=== PATIENT | male | born 1985 | race African-American/Black ===

== ENCOUNTER 2017-01-01 19:36 | Emergency (ER) | payer OTHER ==
[~2017-01-01] VITALS: Ht 182.9 cm; Wt 136.1 kg
[~2017-01-01 19:36] MED LIST: PRED20TA PO
[2017-01-01 20:46] VITALS: BP 151/93
[2017-01-01 21:56] LABS: OBC FLU VALID
[2017-01-01] MEDS ORDERED: AZIT250T PO (22:26)
[2017-01-01] MEDS ORDERED: PRED20TA PO (22:26)
[2017-01-01] MEDS ORDERED: BENZ200C39 PO (22:26)
--- NOTE | 2017-01-01 22:26 | PHYS DOC ---
Past Medical History Past Medical History: Asthma, Diabetes-Type II Past Surgical History: No Surgical History Additional Information: Non smoker Alcohol Use: Occasionally Drug Use: Marijuana Adult General Chief Complaint Chief Complaint: COUGH HPI HPI Patient is a 31 year old male who presents with productive cough and shortness of breath started 2 days ago. He also has nasal congestion. He denies fever, sore throat, ear pain, or vomiting. He has a history of asthma and has been using his nebulizer at home. He had his last breathing treatment at 1930. His PCP is Franca London. Review of Systems Review of Systems Constitutional: Denies fever or chills. [] Eyes: Denies change in visual acuity, redness, or eye pain. [] HENT: Denies ear pain or sore throat. Reports nasal congestion. Respiratory: Reports productive cough and shortness of breath. Cardiovascular: Denies chest pain, palpitations or edema. [] GI: Denies abdominal pain, nausea, vomiting. [] Integument: Denies rash or skin lesions. [] Neurologic: Denies headache, focal weakness or sensory changes. [] All systems reviewed and negative unless otherwise stated in the HPI. Allergies Allergies Allergies Coded Allergies Type Severity Reaction Last Updated Verified No Known Drug Allergies 11/16/14 No Physical Exam Physical Exam Constitutional: Well developed, well nourished, no acute distress, non-toxic appearance. [] HENT: Normocephalic, atraumatic, bilateral external ears normal, oropharynx moist, no oral exudates, nose normal. Bilateral TMs without erythema or bulging. There is no posterior pharyngeal erythema or tonsillar edema. Bilateral nasal turbinates are swollen and erythematous with purulent drainage. Eyes: PERRLA, EOMI, conjunctiva normal, no discharge. [] Neck: Normal range of motion, no tenderness, supple, no stridor. [] Cardiovascular: Heart rate regular rhythm, no murmur [] Lungs & Thorax: Bilateral breath sounds clear to auscultation without wheezes, rales, or rhonchi. Skin: Warm, dry, no erythema, no rash. [] Neurologic: Alert and oriented X 3, normal motor function, normal sensory function, no focal deficits noted. [] Psychologic: Affect normal, judgement normal, mood normal. [] Current Patient Data Vital Signs Vital Signs Date Time Temp Pulse Resp B/P Pulse Ox O2 Delivery O2 Flow Rate FiO2 01/01/17 20:46 98.4 81 18 99 Room Air 98.4 Lab Values Laboratory Tests Test 01/01/17 21:00 Influenza Type A Antigen Negative (NEGATIVE) Influenza Type B Antigen Negative (NEGATIVE) EKG EKG [] Radiology/Procedures Radiology/Procedures PA and lateral chest x-ray reviewed and interpreted by myself with Dr. Pina. There is a mild right lower lobe infiltrate. Course & Med Decision Making Course & Med Decision Making Pertinent Labs and Imaging studies reviewed. (See chart for details) [] Dragon Disclaimer Dragon Disclaimer This electronic medical record was generated, in whole or in part, using a voice recognition dictation system. Departure Departure Impression: Primary Impression: Pneumonia Disposition: HOME, SELF-CARE Condition: STABLE Referrals: NO PCP (PCP) Patient Instructions: Pneumonia, Adult, [id number] Additional Instructions: Your chest x-ray shows a mild pneumonia. Please complete all the prescribed antibiotics and steroids, even if you are feeling better. Please follow-up with your primary care doctor within the next week. Return to emergency department if you've increased difficulty breathing, fevers , or other new or concerning symptoms. Scripts Benzonatate 200 Mg Capsule1 Cap PO TID #30 CAP Prov:SABRINA GARCIA 01/01/17 Prednisone 20 Mg Paesfs34 Mg PO DAILY 5 Days Prov:SABRINA GARCIA 01/01/17 Azithromycin (Zithromax)250 Mg Tablet1 Pkg PO UD #6 TAB Prov:SABRINA GARCIA 01/01/17 Problem Qualifiers Primary Impression: Pneumonia Pneumonia type: due to unspecified organism Laterality: right Lung location : lower lobe of lung Qualified Code: J18.1 - Lobar pneumonia, unspecified organism SABRINA GARCIA Jan 01, 2017 22:26
--- NOTE | 2017-01-02 08:52 | RAD ---
Chest, 2 views, 01/01/2017: History: Cough The heart size and pulmonary vascularity are normal. No pulmonary infiltrate is seen. There is no evidence of pleural fluid. IMPRESSION: No acute cardiopulmonary abnormality is detected.
== END 2017-01-01 22:35 | disposition home or self-care (01) ==
LOC: ER 19:36
DX: J18.1 Lobar pneumonia, unspecified organism (principal); E11.9 Type 2 diabetes mellitus without complications; J45.909 Unspecified asthma, uncomplicated; F12.10 Cannabis abuse, uncomplicated
CPT/HCPCS: 71020; 87804; 99285-25

== ENCOUNTER 2019-09-18 15:49 | Emergency (ER) | payer OTHER ==
[~2019-09-18] VITALS: Ht 172.7 cm; Wt 136.1 kg
[~2019-09-18 15:49] MED LIST changes: +AZIT250T PO; +BENZ200C47 PO
[2019-09-18 16:11] VITALS: BP 168/110
--- NOTE | 2019-09-18 16:12 | PHYS DOC ---
Past Medical History Past Medical History: Asthma, Diabetes-Type II Past Surgical History: No Surgical History Alcohol Use: Occasionally Drug Use: Marijuana Adult General Chief Complaint Chief Complaint: HAND PROBLEM HPI HPI Patient is a 33 year old male who presents with stepping up onto the porch and missed and he fell to the left side catching himself with the left hand and landing on the hand. Patient fell onto the concrete. This happened at [address]. Patient rates his pain a 7 out of 10 and he has tenderness to the dorsal hand at the fourth and fifth finger. Review of Systems Review of Systems Musculoskeletal: Denies back pain. Left hand joint pain [] All other systems were reviewed and found to be within normal limits, except as documented in this note. Current Medications Current Medications Current Medications Medications (Trade) Dose Ordered Sig/Eliot Start Time Stop Time Status Last Admin Dose Admin Ibuprofen (Motrin) 600 mg 1X ONCE 09/18/19 16:15 09/18/19 16:16 DC 09/18/19 16:25 600 MG Allergies Allergies Allergies Coded Allergies Type Severity Reaction Last Updated Verified No Known Drug Allergies 11/16/14 No Physical Exam Physical Exam Constitutional: Well developed, well nourished, no acute distress, non-toxic appearance. [] Skin: Warm, dry, no erythema, no rash. [] Back: No tenderness, no CVA tenderness. [] Extremities: Left dorsal hand radial sided tenderness, no cyanosis, no clubbing, ROM intact, 1+ edema. [] Neurologic: Alert and oriented X 3, normal motor function, normal sensory function, no focal deficits noted. [] Psychologic: Affect normal, judgement normal, mood normal. [] Current Patient Data Vital Signs Vital Signs Date Time Temp Pulse Resp B/P (MAP) Pulse Ox O2 Delivery O2 Flow Rate FiO2 09/18/19 16:11 98.4 77 18 168/110 (129) 95 Room Air 98.4 EKG EKG [] Radiology/Procedures Radiology/Procedures [] Impressions: [facility] [address] [place] [address] IMAGING REPORT Signed PATIENT: JAI QUEEN ACCOUNT: [id number] : 1985 LOCATION: ER AGE: 33 SEX: M EXAM STATUS: REG ER ORD. PHYSICIAN: MONO ELLIS APRN REASON: fall. PROCEDURE: HAND LEFT 3V EXAM: Left hand and wrist, 3 views. HISTORY: Fall. COMPARISON: None. FINDINGS: 3 views of the left hand and wrist are obtained. There is no fracture, dislocation or subluxation. No foreign body is seen. IMPRESSION: No acute osseous finding. Electronically signed by: Mindy Prado MD (09/18/2019 4:31 PM) [facility] DICTATED and SIGNED BY: MINDY PRADO MD DATE: 09/18/19 1639 Course & Med Decision Making Course & Med Decision Making Tenderness to the dorsal hand distal to the fourth and fifth finger and he also has fifth finger tenderness. There is 1+ swelling. No deformity or bruising seen. Patient has full range of motion of the wrist and no tenderness to the wrist. Radial pulses strong and present. Skin pink warm and dry. Cap refill less than 3 seconds. Patient can make a fist but it is painful. No laxity in any joints. Patient denies numbness or tingling. Patient denies hitting his head, neck pain, back pain, or any other extremity pain. Dragon Disclaimer Dragon Disclaimer This electronic medical record was generated, in whole or in part, using a voice recognition dictation system. Departure Departure Impression: Primary Impression: Hand contusion Disposition: 01 HOME, SELF-CARE Condition: STABLE Referrals: NO PCP (PCP) Patient Instructions: Hand Contusion Additional Instructions: FOLLOW UP WITH PRIMARY CARE PROVIDER. USE ICE AND ELEVATION TO HELP WITH SWELLING AND PAIN. TAKE IBUPROFEN TO HELP WITH PAIN. Problem Qualifiers Primary Impression: Hand contusion Encounter type: initial encounter Laterality: left Qualified Codes: S60.222A - Contusion of left hand, initial encounter MONO ELLIS APRN Sep 18, 2019 16:12
[2019-09-18] MEDS ORDERED: IBUPROFEN 200 MG TABLET. PO ONE (16:15)
--- NOTE | 2019-09-18 16:34 | RAD ---
EXAM: Left hand and wrist, 3 views. HISTORY: Fall. COMPARISON: None. FINDINGS: 3 views of the left hand and wrist are obtained. There is no fracture, dislocation or subluxation. No foreign body is seen. IMPRESSION: No acute osseous finding. Electronically signed by: Mindy De La Torre MD (09/18/2019 4:31 PM) [facility]
--- NOTE | 2019-09-19 10:25 | RAD ---
EXAM: Left hand and wrist, 3 views. HISTORY: Fall. COMPARISON: None. FINDINGS: 3 views of the left hand and wrist are obtained. There is no fracture, dislocation or subluxation. No foreign body is seen. IMPRESSION: No acute osseous finding. Electronically signed by: Mindy De La Torre MD (09/18/2019 4:31 PM) [facility]
== END 2019-09-18 16:48 | disposition home or self-care (01) ==
LOC: ER 15:49
DX: S60.222A Contusion of left hand, initial encounter (principal); J45.909 Unspecified asthma, uncomplicated; E11.9 Type 2 diabetes mellitus without complications; W18.09XA Striking against other object with subsequent fall, initial encounter; Y93.89 Activity, other specified; Y92.89 Other specified places as the place of occurrence of the external cause; Y99.8 Other external cause status
CPT/HCPCS: 73110; 73130; 99284

== ENCOUNTER 2019-10-13 13:54 | Emergency (ER) | payer OTHER ==
[~2019-10-13] VITALS: Ht 182.9 cm; Wt 135.6 kg
[2019-10-13] MEDS ORDERED: NAPROXEN 500 MG TABLET PO STA (15:38)
[2019-10-13 15:43] VITALS: BP 140/85
--- NOTE | 2019-10-13 15:45 | PHYS DOC ---
Past Medical History Past Medical History: Asthma, Diabetes-Type II Past Surgical History: No Surgical History Alcohol Use: Occasionally Drug Use: Marijuana Adult General Chief Complaint Chief Complaint: [facility] HPI Patient is a 33 year old AA male, accompanied by his family, who presents to the emergency department with continued complaints of left index finger pain. Patient states that he initially injured his finger on September 18, 2019 when he fell. He had x-ray at that time and was told that his finger was just bruised. Patient states it feels like his fingers out of place. He currently rates his pain as 7 out of 10 on the pain scale, he denies any decreased range of motion. Patient states he has not been taking anything for relief of pain at home. Patient denies any clicking or swelling of the affected finger, he denies any numbness, tingling, or weakness. Patient denies any new injury since the fall. All other ROS is neg unless otherwise noted in HPI. Review of Systems Review of Systems See Above Current Medications Current Medications Current Medications Medications (Trade) Dose Ordered Sig/Eliot Start Time Stop Time Status Last Admin Dose Admin Naproxen (Naprosyn) 500 mg 1X STAT 10/13/19 15:38 10/13/19 15:40 DC 10/13/19 15:50 500 MG Allergies Allergies Allergies Coded Allergies Type Severity Reaction Last Updated Verified No Known Drug Allergies 11/16/14 No Physical Exam Physical Exam See Above Constitutional: Well developed, well nourished, no acute distress, non-toxic appearance, obese [] HENT: Normocephalic, atraumatic, bilateral external ears normal, nose normal. [] Eyes: PERRLA, EOMI, conjunctiva normal, no discharge. [] Neck: Normal range of motion, no stridor. [] Cardiovascular:Heart rate regular rhythm Lungs & Thorax: Respirations even and unlabored, no retractions, no respiratory distress Skin: Warm, dry, no erythema, no rash. [] Extremities: 5th digit of Left hand, No bony tenderness, no creptius, no cyanosis, no clubbing, ROM intact, no edema. [] Neurologic: Alert and oriented X 3, no focal deficits noted. [] Psychologic: Affect normal, judgement normal, mood normal. [] Current Patient Data Vital Signs Vital Signs Date Time Temp Pulse Resp B/P (MAP) Pulse Ox O2 Delivery O2 Flow Rate FiO2 12/2/19 15:43 97.8 77 17 140/85 (103) 99 Room Air 97.8 EKG EKG [] Radiology/Procedures Radiology/Procedures PROCEDURE: FINGER(S) LEFT 3 view study of the fifth digit of the left hand Clinical indications: Fifth digit injury 1 month ago and the patient feels like it is dislocated. FINDINGS: No acute fracture or dislocation or lytic process of the fifth digit is seen. There is soft tissue calcification of the webspace between the proximal fourth and fifth metacarpal bones. This may be due to old trauma. IMPRESSION: No acute fracture or dislocation. [] Course & Med Decision Making Course & Med Decision Making Pertinent Labs and Imaging studies reviewed. (See chart for details) X-rays negative for any fracture or dislocation. Patient was given naproxen 500 mg in the emergency department. Prescription for naproxen 500 mg by mouth twice a day is written. Patient instructed to follow-up with his primary care doctor for further evaluation, return to the ER if symptoms worsen. Patient verbalized an understanding of home care, medications, follow-up, and return to ED instructions and was in agreement with the plan of care. [] Dragon Disclaimer Dragon Disclaimer This electronic medical record was generated, in whole or in part, using a voice recognition dictation system. Departure Departure Impression: Primary Impression: Finger contusion Disposition: 01 HOME, SELF-CARE Condition: STABLE Referrals: NO PCP (PCP) Patient Instructions: Contusion, [id number] Additional Instructions: Fill prescription(s) and use as directed. Recommend application of ice, elevation, and rest of affected extremity. All up with her primary care doctor symptoms persist. Return to the ER if your symptoms worsen. Scripts Naproxen (NAPROXEN) 500 Mg Tablet 1 TAB PO BID PRN for PAIN for 10 Days, #20 TAB 0 Refills Prov: LUCIO SAENZ APRN 10/13/19 Problem Qualifiers Primary Impression: Finger contusion Encounter type: initial encounter Finger: little finger Damage to nail status: without damage Laterality: left Qualified Codes: S60.052A - Contusion of left little finger without damage to nail, initial encounter LUCIO SAENZ APRN Oct 13, 2019 15:45
--- NOTE | 2019-10-13 16:16 | RAD ---
3 view study of the fifth digit of the left hand Clinical indications: Fifth digit injury 1 month ago and the patient feels like it is dislocated. FINDINGS: No acute fracture or dislocation or lytic process of the fifth digit is seen. There is soft tissue calcification of the webspace between the proximal fourth and fifth metacarpal bones. This may be due to old trauma. IMPRESSION: No acute fracture or dislocation. Electronically signed by: Romel Colón MD (10/13/2019 4:13 PM) [facility]
[2019-10-13] MEDS ORDERED: NAPR-514 PO (16:22)
== END 2019-10-13 17:13 | disposition home or self-care (01) ==
LOC: ER 13:54
DX: S60.052A Contusion of left little finger without damage to nail, initial encounter (principal); E11.9 Type 2 diabetes mellitus without complications; J45.909 Unspecified asthma, uncomplicated; W18.39XA Other fall on same level, initial encounter; Y93.89 Activity, other specified; Y92.89 Other specified places as the place of occurrence of the external cause; Y99.8 Other external cause status
CPT/HCPCS: 73140; 99284